=== PATIENT | male | born 1960 | race Caucasian/White ===

== ENCOUNTER 2021-12-05 14:13 | Inpatient (IN) | payer OTHER ==
[2021-12-05] MEDS ORDERED: Acetaminophen/HYDROcodone 325-10 MG Tab PO PRN (14:22)
[2021-12-05] MEDS ORDERED: Ondansetron 4 MG/2 ML SDV IVPUSH PRN (14:22)
[2021-12-05] MEDS ORDERED: Albuterol/Ipratropium 3.0-0.5 MG/3 ML Neb Soln NEB PRN (14:22)
[2021-12-05] MEDS ORDERED: Polyethylene Glycol 3350 Powder 17 GM Packet PO PRN (14:22)
[2021-12-05] MEDS ORDERED: Magnesium Hydroxide 400 MG/5 ML Susp 30 ML Cup PO PRN (14:22)
[2021-12-05] MEDS ORDERED: Sodium Chloride 0.9% 10 ML Syringe FLUSH PRN (14:22)
[2021-12-05] MEDS ORDERED: HYDROmorphone 0.5 MG/0.5 ML Syringe IVPUSH PRN (14:22)
[2021-12-05] MEDS ORDERED: Heparin Sodium 5,000 Units/ML Vial IVPUSH ONE ×2 (14:25→23:02)
[2021-12-05] MEDS ORDERED: Codeine/guaiFENesin 10-100 MG/5 ML Syrup 5 ML Cup PO PRN (14:27)
[2021-12-05] MEDS: Heparin Sodium/0.45% NaCl 25,000 UNITS/500 ML BAG IV SCH (15:29)
[2021-12-05] MEDS ORDERED: Melatonin 3 MG Tab PO PRN (20:48)
[2021-12-05] MEDS: Acetaminophen 325 MG Tab PO PRN (23:15)
[2021-12-05] MEDS: Zolpidem 5 MG Tab PO PRN (23:22)
[2021-12-05] MEDS: Sodium Chloride 0.9% 10 ML Syringe FLUSH SCH (23:27)
[2021-12-06] MEDS: Heparin Sodium/0.45% NaCl 25,000 UNITS/500 ML BAG IV SCH ×2 (03:35→15:02)
[2021-12-06] MEDS: Acetaminophen 325 MG Tab PO PRN ×3 (08:45→21:42)
[2021-12-06] MEDS: Sodium Chloride 0.9% 10 ML Syringe FLUSH SCH ×2 (08:52→21:44)
[2021-12-06] MEDS: Zolpidem 5 MG Tab PO PRN (21:43)
[2021-12-07] MEDS: Heparin Sodium/0.45% NaCl 25,000 UNITS/500 ML BAG IV SCH (02:12)
[2021-12-07] MEDS: Acetaminophen 325 MG Tab PO PRN (02:19)
[2021-12-07 07:07] LABS: ANION GAP 11.1 mEq/L (7-13)
[2021-12-07] MEDS: Sodium Chloride 0.9% 10 ML Syringe FLUSH SCH (09:40)
[2021-12-07] MEDS ORDERED: Apixaban 5 MG Tab PO SCH (10:00)
== END 2021-12-07 11:15 | disposition home or self-care (01) | DRG 299 ==
LOC: DL.MS 14:13
PROVIDERS: ADMIT Internal Medicine; ATTEND Internal Medicine
DX: I82.402 Acute embolism and thrombosis of unspecified deep veins of left lower extremity (principal); I26.99 Other pulmonary embolism without acute cor pulmonale; U09.9 Post COVID-19 condition, unspecified; J45.909 Unspecified asthma, uncomplicated; I27.20 Pulmonary hypertension, unspecified; L40.9 Psoriasis, unspecified; M48.04 Spinal stenosis, thoracic region; M51.24 Other intervertebral disc displacement, thoracic region; Z79.01 Long term (current) use of anticoagulants; Z28.82 Immunization not carried out because of caregiver refusal
CPT/HCPCS: 36415; 80053; 83735; 85025; 85730; A9270-GY; J1644; J3490

== ENCOUNTER 2023-08-07 15:15 | Inpatient (IN) | payer OTHER ==
[2023-08-07] MEDS: Diltiazem 25 MG/5 ML SDV IVPUSH ONE ×2 (15:43→21:13)
[2023-08-07] MEDS: Sodium Chloride 0.9% 10 ML Syringe FLUSH PRN (15:44)
[2023-08-07] MEDS: Iopamidol 755 Mg/ML 100 ML Bottle IVPUSH ONE (15:45)
[2023-08-07 15:51] LABS: BASOPHILS PERCENT AUTO 0.4 % (0.0-1.0); EOSINOPHILS PERCENT AUTO 1.2 % (1.0-3.0); HEMATOCRIT 43.9 % (40.0-54.0); HEMOGLOBIN 14.2 g/dL (14.0-18.0); LYMPHOCYTES PERCENT AUTO 21.7 % (20.5-50.1); MEAN CORPUSCULAR HEMOGLOBIN 32.2 pg (27.0-34.0); MEAN CORPUSCULAR HGB CONC 32.3 g/dL (33.0-35.0); MEAN CORPUSCULAR VOLUME 99.5 fL (80-100); MONOCYTES PERCENT AUTO 9.2 % (2-8); NEUTROPHILS PERCENT AUTO 67.5 % (42.2-75.2); PLATELET COUNT,PLT 254 10^3/uL (150-450); RED BLOOD CELL COUNT 4.41 10^6/uL (4.6-6.2); WHITE BLOOD CELL COUNT,WBC 8.1 10^3/uL (5.0-10.0)
[2023-08-07] MEDS: Sodium Chloride 0.9% 1,000 ML IV ONE (15:56)
[2023-08-07] MEDS: Diltiazem 125 MG in Sodium Chloride 0.9% 100 ML IV SCH (15:57)
[2023-08-07 16:12] LABS: A/G RATIO 1.1; ALBUMIN 3.5 g/dL (3.4-5.0); ANION GAP 12.9 mEq/L (7-13); BILIRUBIN TOTAL 0.4 mg/dL (0.2-1.0); BUN/CREATININE RATIO 23.4 (No establ ref range); CALCIUM 8.9 mg/dL (8.5-10.1); CREATININE 1.07 mg/dL (0.70-1.30); EST CRCL DRUG DOSING (CG) 92.52 mL/min; POTASSIUM,K 3.9 mmol/L (3.5-5.1); PROTEIN TOTAL,TP 6.6 g/dL (6.4-8.2)
[2023-08-07] MEDS: Digoxin 500 MCG/2 ML Amp IVPUSH ONE (17:06)
[2023-08-07 18:17] LABS: MAGNESIUM 1.9 mg/dL (1.8-2.4); TSH ULTRASENSITIVE 2.74 uIU/mL (0.36-3.74)
[2023-08-07] MEDS: Apixaban 5 MG Tab PO ONE (19:18)
[2023-08-07] MEDS ORDERED: Acetaminophen/HYDROcodone 325-10 MG Tab PO PRN (20:29)
[2023-08-07] MEDS ORDERED: Ondansetron 4 MG Tab.DIS PO PRN (20:29)
[2023-08-07] MEDS ORDERED: Acetaminophen 325 MG Tab PO PRN (20:29)
[2023-08-07] MEDS ORDERED: Docusate Sodium 100 MG Cap PO PRN (20:29)
[2023-08-07] MEDS: Apixaban 5 MG Tab PO SCH (20:59)
[2023-08-07] MEDS: Sodium Chloride 0.9% 1,000 ML IV SCH (21:11)
[2023-08-07] MEDS: Diltiazem IR 30 MG Tab PO SCH (21:13)
[2023-08-08] MEDS: Digoxin 500 MCG/2 ML Amp IVPUSH ONE (02:08)
[2023-08-08 06:45] LABS: BASOPHILS PERCENT AUTO 0.5 % (0.0-1.0); EOSINOPHILS PERCENT AUTO 2.1 % (1.0-3.0); HEMATOCRIT 42.8 % (40.0-54.0); HEMOGLOBIN 14.1 g/dL (14.0-18.0); MEAN CORPUSCULAR HEMOGLOBIN 32.4 pg (27.0-34.0); MEAN CORPUSCULAR HGB CONC 32.9 g/dL (33.0-35.0); MEAN CORPUSCULAR VOLUME 98.4 fL (80-100); MONOCYTES PERCENT AUTO 7.6 % (2-8); NEUTROPHILS PERCENT AUTO 70.8 % (42.2-75.2); PLATELET COUNT,PLT 249 10^3/uL (150-450); RED BLOOD CELL COUNT 4.35 10^6/uL (4.6-6.2); WHITE BLOOD CELL COUNT,WBC 6.3 10^3/uL (5.0-10.0)
[2023-08-08 06:54] LABS: ANION GAP 14.9 mEq/L (7-13); CALCIUM 8.4 mg/dL (8.5-10.1); CREATININE 0.95 mg/dL (0.70-1.30); EST CRCL DRUG DOSING (CG) 104.21 mL/min; POTASSIUM,K 3.9 mmol/L (3.5-5.1)
[2023-08-08] MEDS: Diltiazem IR 30 MG Tab PO SCH (08:20)
[2023-08-08] MEDS: Digoxin 125 MCG Tab PO SCH (11:16)
[2023-08-08] MEDS: Diltiazem IR 30 MG Tab PO ONE ×2 (15:56)
== END 2023-08-08 14:52 | disposition home or self-care (01) | DRG 310 ==
LOC: DL.ED 15:15 → DL.MS 20:13 → UNDOADMIN 20:13 → DL.MS 20:29
PROVIDERS: ADMIT Internal Medicine; ATTEND Internal Medicine
DX: I48.91 Unspecified atrial fibrillation (principal); E66.9 Obesity, unspecified; J45.909 Unspecified asthma, uncomplicated; Z87.2 Personal history of diseases of the skin and subcutaneous tissue; Z86.16 Personal history of COVID-19; Z98.49 Cataract extraction status, unspecified eye; Z68.35 Body mass index [BMI] 35.0-35.9, adult; Z86.711 Personal history of pulmonary embolism; Z86.718 Personal history of other venous thrombosis and embolism
CPT/HCPCS: 36415; 71275; 80048; 80053; 83735; 84443; 84484; 85025; 93005; 93010; 96365; 96366; 96375; 99285; 99285-25; A9270-GY; J1160; J3490; J7030; Q9967